=== PATIENT | female | born 1960 | race Caucasian/White ===

== ENCOUNTER 2017-08-30 17:40 | Emergency (ER) | payer OTHER ==
[2017-08-30] MEDS: ACETAMINOPHEN 325 MG TAB PO (20:25)
[2017-08-30] MEDS: LIDOCAINE 1% (MDV) 10 ML INJ INFIL (21:11)
[2017-08-30] MEDS: CEFTRIAXONE 1 GM INJ IM (21:12)
== END 2017-08-30 21:29 | disposition home or self-care (01) ==
LOC: FTE 17:40
DX: L03.031 Cellulitis of right toe (principal); E11.9 Type 2 diabetes mellitus without complications; Z79.4 Long term (current) use of insulin
CPT/HCPCS: 73630; 96372; 99284-25